=== PATIENT | female | born 1980 | race African-American/Black ===

== ENCOUNTER 2018-12-16 22:34 | Emergency (ER) | payer MEDICAID, OTHER ==
[~2018-12-16] VITALS: Ht 160 cm; Wt 72.0 kg
[2018-12-17] MEDS ORDERED: KETOROLAC 60MG/2ML VIAL IM STA (03:29)
[2018-12-17 03:30] LABS: COLOR URINE YELLOW (YELLOW); KETONES URINE NEGATIVE (NEGATIVE); LEUKOCYTE ESTERASE URINE NEGATIVE (NEGATIVE); NITRITE URINE NEGATIVE (NEGATIVE); OCCULT BLOOD URINE NEGATIVE (NEGATIVE); PROTEIN URINE NEGATIVE (NEGATIVE); SPECIFIC GRAVITY URINE 1.028 (1.005-1.030); UROBILINOGEN URINE 0.2 E.U./dL (0.2-1.0)
[2018-12-17 03:34] LABS: CLARITY URINE HAZY (CLEAR)
[2018-12-17 04:44] VITALS: BP 138/80
== END 2018-12-17 04:45 | disposition home or self-care (01) ==
LOC: ER 22:34
DX: M54.5 Low back pain (principal)
CPT/HCPCS: 81003; 81025; 96372; 99283; J1885